=== PATIENT | female | born 1960 | race Caucasian/White ===

== ENCOUNTER 2024-11-12 09:55 | Outpatient (CLI) | payer SELFPAY ==
--- NOTE | 2024-11-12 09:59 | CT_ITS ---
WS: [id number] CT CALCIUM SCORE REASON FOR VISIT: HYPERLIPIDEMIA; Coronary artery disease risk assessment COMPARISON: None TECHNIQUE: Noncontrast coronary CT in combination with quantitative analysis performed on a separate workstation were used to determine CACS (Agatston score) TOTAL EXAM DOSE: 154.45 mGy.cm ECG GATING: Prospective SCAN RANGE: Pulmonary artery bifurcation to Inferior aspect of heart COMPLICATIONS: None FINDINGS: Technical Quality/Examination Quality: Good Limitaiton: None OVERALL SCORES Total calcium score: 14 Total volume score: 20 mm3 Percentile: 25th to 50th percentile for females between the ages of 65 and 69 ARTERY SCORES Left main coronary artery: 0 Left anterior descending artery: 14 Left circumflex artery: 0 Right coronary artery: 0 OTHER FINDINGS: Mediastinum: Normal. Thoracic aorta: Normal. Lungs: Normal. Upper Abdomen: Moderate esophageal hiatal hernia. MINIMAL: 1-10 MILD: 11-100 MODERATE: 101-400 SEVERE:>400 CT/CT heart w calcium score 48308 IMPRESSION: Mild coronary artery disease. GRADING OF CORONARY ARTERY DISEASE (BASED ON TOTAL CALCIUM SCORE) NO EVIDENCE OF CAD: 0 calcium score
== END 2024-11-12 09:56 | disposition home or self-care (01) ==
LOC: RAD 09:58
PROVIDERS: PCP Family Medicine; Visit Provider Family Medicine
DX: E78.5 Hyperlipidemia, unspecified (principal); Z82.41 Family history of sudden cardiac death; K44.9 Diaphragmatic hernia without obstruction or gangrene; I25.10 Atherosclerotic heart disease of native coronary artery without angina pectoris
CPT/HCPCS: 75571

== ENCOUNTER → 2025-03-03 11:04 | Outpatient (BNVA) | payer MEDICARE, SELFPAY | PROVIDERS: PCP Family Medicine; Visit Provider Dermatology | DX: L81.4 Other melanin hyperpigmentation (principal); L82.1 Other seborrheic keratosis; L91.8 Other hypertrophic disorders of the skin; D22.5 Melanocytic nevi of trunk | CPT/HCPCS: 11102; 99203 ==